=== PATIENT | male | born 1985 | race African-American/Black ===

== ENCOUNTER 2019-07-13 08:26 | Outpatient (CLI) | payer MEDICAID | END 2019-07-13 23:59 | disposition home or self-care (01) | LOC: RAD 08:26 | PROVIDERS: ATTEND Psychiatry & Neurology Neurology | DX: R40.4 Transient alteration of awareness (principal); R94.31 Abnormal electrocardiogram [ECG] [EKG] | CPT/HCPCS: 95816 ==